=== PATIENT | male | born 1970 | race American Indian/Alaskan Native ===

== ENCOUNTER 2017-04-21 18:44 | Emergency (ER) | payer SELFPAY ==
--- NOTE | 2017-04-21 20:25 | ED PDOC ---
Arrival/HPI - General Chief Complaint: Flu-like Symptoms Time Seen by Provider: 04/21/17 19:16 Historian: Patient - History of Present Illness Narrative History of Present Illness (Text): 04/21/17 20:20 47yo male with no PMHx who present with complaint of nonproductive cough, sore throat, ear pain, bodyache, chills, lightheadedness x 5days. States the bodyache and lightheadedness started today. He denies fever, but was febrile in triage. He did not take any medication for his symptoms. He denies chest pain, SOB, headache, focal weakness, sick contact, travel, nausea, vomiting, any other complaint. Past Medical History - Provider Review Nursing Documentation Reviewed: Yes - Cardiac Hx Cardiac Disorders: No - Pulmonary Hx Respiratory Disorders: No - Neurological Hx Neurological Disorder: No - HEENT Hx HEENT Disorder: No - Renal Hx Renal Disorder: No - Endocrine/Metabolic Hx Endocrine Disorders: No - Hematological/Oncological Hx Blood Disorders: No - Integumentary Hx Dermatological Disorder: No - Musculoskeletal/Rheumatological Hx Musculoskeletal Disorders: No - Gastrointestinal Hx Gastrointestinal Disorders: No - Genitourinary/Gynecological Hx Genitourinary Disorders: No - Psychiatric Hx Psychophysiologic Disorder: No Hx Substance Use: No Family/Social History - Physician Review Nursing Documentation Reviewed: Yes Family/Social History: Unknown Family HX Smoking Status: Never Smoked Hx Alcohol Use: No Hx Substance Use: No Allergies/Home Meds Allergies/Adverse Reactions: Allergies shellfish derived Allergy (Verified 04/21/17 19:03) ANAPHYLAXIS Review of Systems - Physician Review All systems were reviewed & negative as marked: Yes - Review of Systems Constitutional: Fatigue, Fevers Eyes: Normal ENT: Sore Throat, Other (Ear pain) Respiratory: Normal, Cough. absent: SOB, Sputum, Wheezing Cardiovascular: Normal Gastrointestinal: Normal Genitourinary Male: Normal Musculoskeletal: Normal Skin: Normal Neurological: Normal Endocrine: Normal Hemo/Lymphatic: Normal Psychiatric: Normal Physical Exam Vital Signs Reviewed: Yes Vital Signs Temp Pulse Resp BP Pulse Ox 04/21/17 19:08 101.8 F H 102 H 19 130/83 95 04/21/17 19:04 101.8 F H 100 H 18 130/83 94 L Temperature: Febrile Blood Pressure: Normal Pulse: Regular Respiratory Rate: Normal Appearance: Positive for: Well-Appearing, Non-Toxic, Comfortable Pain Distress: None Mental Status: Positive for: Alert and Oriented X 3 - Systems Exam Head: Present: Atraumatic, Normocephalic Pupils: Present: PERRL Extroacular Muscles: Present: EOMI Conjunctiva: Present: Normal Mouth: Present: Moist Mucous Membranes Neck: Present: Normal Range of Motion Respiratory/Chest: Present: Clear to Auscultation, Good Air Exchange. No: Respiratory Distress, Accessory Muscle Use, Wheezes, Decreased Breath Sounds, Rales, Retracting, Rhonchi Cardiovascular: Present: Regular Rate and Rhythm, Normal S1, S2. No: Murmurs Abdomen: Present: Normal Bowel Sounds. No: Tenderness, Distention, Peritoneal Signs Back: Present: Normal Inspection Upper Extremity: Present: Normal Inspection. No: Cyanosis, Edema Lower Extremity: Present: Normal Inspection. No: Edema Neurological: Present: GCS=15, CN II-XII Intact, Speech Normal Skin: Present: Warm, Dry, Normal Color. No: Rashes Psychiatric: Present: Alert, Oriented x 3, Normal Insight, Normal Concentration Medical Decision Making ED Course and Treatment: 04/21/17 20:46 PT in ED for stated history. He was febrile, but no lethargic. His Temp/HR improved in ED with medication. Rapid Flu was negative CXR NAD Result was DW the pt. He have flu like symptoms and will be treated with both Tamiflu and Zpack for URI. He was advised to drink plenty of fluid and rest. Referred to the clinic. TRT ED for any new or worsening symptoms. - Lab Interpretations Lab Results: Lab Results 04/21/17 19:20: Influenza Typ A,B (EIA) Negative for flu a/b - RAD Interpretation Radiology Orders: 04/21/17 19:16 CHEST TWO VIEWS (PA/LAT) [RAD] Stat - Medication Orders Current Medication Orders: Discontinued Medications Ibuprofen (Motrin Tab) 600 mg PO STAT STA Stop: 04/21/17 19:17 Last Admin: 04/21/17 19:29 Dose: 600 mg Disposition/Present on Arrival - Present on Arrival Any Indicators Present on Arrival: No History of DVT/PE: No History of Uncontrolled Diabetes: No Urinary Catheter: No History of Decub. Ulcer: No History Surgical Site Infection Following: None - Disposition Have Diagnosis and Disposition been Completed?: Yes Diagnosis: Viral syndrome, URI (upper respiratory infection) Disposition: HOME/ ROUTINE Disposition Time: 20:50 Patient Plan: Discharge Condition: STABLE Discharge Instructions (ExitCare): Upper Respiratory Infection (ED), Viral Syndrome (ED) Additional Instructions: Drink plenty of fluid and rest Follow up with the clinic Return to ED for any new or worsening symptoms Prescriptions: Azithromycin [Zithromax] 250 mg PO DAILY #4 tab Ibuprofen [Motrin Tab] 600 mg PO Q6 #20 tab Oseltamivir Phosphate [Tamiflu] 75 mg PO BID #10 capsule Promethazine [Phenergan Syrup] 6.25 mg PO Q6 #100 ml Referrals: [facility] [Outside] - Follow up with primary Forms: [employer] (Scottish)
[2017-04-21] MEDS ORDERED: guaiFENesin 200 mg/10 ml Syrup UD PO STA (20:46)
[2017-04-21 22:45] VITALS: BMI 30.4
[2017-04-21 22:46] VITALS: BP 134/70; PULSE 91; RESP 18; TEMP 98.7; O2SAT 98
--- NOTE | 2017-04-22 08:31 | RAD ---
HISTORY: Cough COMPARISON: No prior. TECHNIQUE: Chest PA and lateral FINDINGS: LINES AND TUBES: None. LUNG AND PLEURA: The lungs are well inflated and clear. HEART AND MEDIASTINUM: The heart is not enlarged. The hilar and mediastinal contours are within normal limits. SKELETAL STRUCTURES: The bony structures are within normal limits for the patient's age. VISUALIZED UPPER ABDOMEN: Normal. OTHER FINDINGS: None. IMPRESSION: No active pulmonary disease.
== END 2017-04-21 21:16 | disposition home or self-care (01) ==
LOC: ED 18:44
DX: J06.9 Acute upper respiratory infection, unspecified (principal)

== ENCOUNTER 2017-10-23 10:55 | Emergency (ER) | payer SELFPAY ==
[2017-10-23 10:56] VITALS: BMI 30.4
--- NOTE | 2017-10-23 11:19 | ED PDOC ---
Arrival/HPI - General Time Seen by Provider: 10/23/17 10:56 Historian: Patient - History of Present Illness Narrative History of Present Illness (Text): 10/23/17 11:23 47yo male with no pmhx who present with months history of feeling jittery and having numbness of his foots. Also reports intermittent polyuria/dipsia. States he went to a clinic a month ago and was told his BS was 385, but he have not seen a Doctor and not on medication. He denies chest pain, SOB, focal weakness, nausea, vomiting, visual changes, abdominal pain, any other complaint. Past Medical History - Provider Review Nursing Documentation Reviewed: Yes - Cardiac Hx Cardiac Disorders: No - Pulmonary Hx Respiratory Disorders: No - Neurological Hx Neurological Disorder: No - HEENT Hx HEENT Disorder: No - Renal Hx Renal Disorder: No - Endocrine/Metabolic Hx Endocrine Disorders: No - Hematological/Oncological Hx Blood Disorders: No - Integumentary Hx Dermatological Disorder: No - Musculoskeletal/Rheumatological Hx Musculoskeletal Disorders: No - Gastrointestinal Hx Gastrointestinal Disorders: No - Genitourinary/Gynecological Hx Genitourinary Disorders: No - Psychiatric Hx Psychophysiologic Disorder: No Hx Substance Use: No Family/Social History - Physician Review Nursing Documentation Reviewed: Yes Family/Social History: Unknown Family HX Smoking Status: Never Smoked Hx Alcohol Use: No Hx Substance Use: No Allergies/Home Meds Allergies/Adverse Reactions: Allergies shellfish derived Allergy (Verified 10/23/17 11:13) ANAPHYLAXIS Review of Systems - Physician Review All systems were reviewed & negative as marked: Yes - Review of Systems Constitutional: Normal, Other (Jittery feeling) Eyes: Normal ENT: Normal Respiratory: Normal Cardiovascular: Normal Gastrointestinal: Normal Genitourinary Male: Normal Musculoskeletal: Normal Skin: Normal Neurological: Normal Endocrine: Normal Hemo/Lymphatic: Normal Psychiatric: Normal Physical Exam Vital Signs Reviewed: Yes Vital Signs Temp Pulse Resp BP Pulse Ox 10/23/17 12:37 98.3 F 77 18 129/75 100 10/23/17 11:23 98.1 F 70 18 122/77 99 Temperature: Afebrile Blood Pressure: Normal Pulse: Regular Respiratory Rate: Normal Appearance: Positive for: Well-Appearing, Non-Toxic, Comfortable Pain Distress: None Mental Status: Positive for: Alert and Oriented X 3 - Systems Exam Head: Present: Atraumatic, Normocephalic Pupils: Present: PERRL Extroacular Muscles: Present: EOMI Conjunctiva: Present: Normal Mouth: Present: Moist Mucous Membranes Neck: Present: Normal Range of Motion Respiratory/Chest: Present: Clear to Auscultation, Good Air Exchange. No: Respiratory Distress, Accessory Muscle Use Cardiovascular: Present: Regular Rate and Rhythm, Normal S1, S2. No: Murmurs Abdomen: No: Tenderness, Distention, Peritoneal Signs Back: Present: Normal Inspection Upper Extremity: Present: Normal Inspection. No: Cyanosis, Edema Lower Extremity: Present: Normal Inspection. No: Edema Neurological: Present: GCS=15, CN II-XII Intact, Speech Normal, Motor Func Grossly Intact, Normal Sensory Function, Normal Cerebellar Funct, Norm Deep Tendon Reflexes, Gait Normal, Memory Normal, Normal 2Pt Descrimination, Other ( No focal neurological deficit) Skin: Present: Warm, Dry, Normal Color. No: Rashes Psychiatric: Present: Alert, Oriented x 3, Normal Insight, Normal Concentration Medical Decision Making ED Course and Treatment: 10/23/17 20:04 Pt in ED for stated history was not in any distress and neurologically intact His BS was 252. No AG. He was hydrated and 4units of insulin given. Repeat FS was 217. PT was diagnosed with Diabetes a month ago, but he never followed up for hypoglycemics. He was DC with metformin 500mg. He was strongly advised to monitor his diet, check his FS pre/post morning and night and referred to the clinic. Advised TRT ED for any new or worsening symptoms. - Lab Interpretations Lab Results: 10/23/17 11:23 10/23/17 11:23 Lab Results 10/23/17 11:23: PT 10.4, INR 0.91 L, APTT 30.0 10/23/17 11:23: Sodium 141, Potassium 4.2, Chloride 101, Carbon Dioxide 29, Anion Gap 15, BUN 13, Creatinine 0.9, Est GFR ( Amer) > 60, Est GFR (Non- Af Amer) > 60, Random Glucose 252 H, Calcium 9.5, Total Bilirubin 0.6, AST 30, ALT 37, Alkaline Phosphatase 67, Lactate Dehydrogenase 445, Total Creatine Kinase 336 H, CK-MB (CK-2) 2.3, CK-MB (CK-2) % Cancelled, Troponin I < 0.01, Total Protein 7.4, Albumin 4.3, Globulin 3.1, Albumin/Globulin Ratio 1.4 10/23/17 11:23: WBC 3.3 L, RBC 5.25, Hgb 15.9, Hct 43.8, MCV 83.4, MCH 30.3, MCHC 36.3, RDW 12.3, Plt Count 175, MPV 10.1, Gran % 42.4 L, Lymph % (Auto) 46.6 H, [place] % (Auto) 9.2 H, Eos % (Auto) 1.5, Baso % (Auto) 0.3, Gran # 1.38 L , Lymph # (Auto) 1.5, [place] # (Auto) 0.3, Eos # (Auto) 0.1, Baso # (Auto) 0.01 - Medication Orders Current Medication Orders: Discontinued Medications Sodium Chloride (Sodium Chloride 0.9%) 1,000 mls @ 999 mls/hr IV .Q1H1M STA Stop: 10/23/17 12:22 Last Admin: 10/23/17 11:41 Dose: 999 mls/hr eMAR Start Stop Document 10/23/17 11:41 GMD (Rec: 10/23/17 11:41 GMD [id number]) Intravenous Solution Start Date 10/23/17 Start Time 11:41 End Date 10/23/17 End time 12:42 Total Infusion Time 61 Insulin Human Regular (Humulin R) 4 units IVP ONCE STA Stop: 10/23/17 11:23 Last Admin: 10/23/17 11:55 Dose: 4 unit MAR Blood Glucose Document 10/23/17 11:55 EWO (Rec: 10/23/17 11:56 EW [id number]) Blood Glucose Finger Stick Blood Glucose (70-120) 237 IVP Administration Document 10/23/17 11:55 EWO (Rec: 10/23/17 11:56 [facility] [id number]) Charges for Administration # of IVP Administrations 1 Disposition/Present on Arrival - Present on Arrival Any Indicators Present on Arrival: No History of DVT/PE: No History of Uncontrolled Diabetes: No Urinary Catheter: No History Surgical Site Infection Following: None - Disposition Have Diagnosis and Disposition been Completed?: Yes Diagnosis: Hyperglycemia, New onset type 2 diabetes mellitus Disposition: HOME/ ROUTINE Disposition Time: 12:15 Patient Plan: Discharge Condition: STABLE Discharge Instructions (ExitCare): Type 2 Diabetes, Hyperglycemia, Adult Additional Instructions: Follow up with the clinic Check your sugar morning and night Return to ED for any new or worsening symptoms Prescriptions: metFORMIN [glucOPHAGE] 500 mg PO BID #30 tab Referrals: Lashonda Betts MD [Staff Provider] - Follow up with primary Forms: [employer] (Kenyan)
[2017-10-23] MEDS ORDERED: Sodium Chloride 0.9% 1,000 ML IV STA (11:22)
[2017-10-23] MEDS ORDERED: Insulin Regular 1 UNITS/0.01 ML ML IVP STA (11:22)
[2017-10-23 11:23] VITALS: RESP 18
[2017-10-23 11:40] LABS: BASO # 0.01 K/mm3 (0.0-2.0); BASO % 0.3 % (0.0-3.0); EOS # 0.1 (0.0-0.7); EOS % 1.5 % (1.5-5.0); GRAN # 1.38 (1.4-6.5); GRAN % 42.4 % (50.0-68.0); HEMOGLOBIN 15.9 g/dL (14.0-18.0); LYMPH # 1.5 (1.2-3.4); LYMPH % 46.6 % (22.0-35.0); MEAN CELL VOLUME 83.4 fl (80.0-105.0); MEAN CORPUSCULAR HEMOGLOBIN 30.3 pg (25.0-35.0); MEAN CORPUSCULAR HGB CONC 36.3 g/dl (31.0-37.0); MEAN PLATELET VOLUME 10.1 fl (7.0-11.0); MONO # 0.3 (0.1-0.6); MONO % 9.2 % (1.0-6.0); RBC 5.25 10^6/uL (3.5-6.1); RED CELL DISTRIBUTION WIDTH 12.3 % (11.5-14.5); WHITE BLOOD COUNT 3.3 10^3/ul (4.5-11.0)
[2017-10-23 11:50] LABS: INR 0.91 (0.93-1.08); PROTHROMBIN TIME 10.4 SECONDS (9.4-12.5)
[2017-10-23 11:52] LABS: ALB/GLOB RATIO 1.4 (1.1-1.8); ALBUMIN 4.3 g/dL (3.0-4.8); ALT/SGPT 37 U/L (7-56); AST/SGOT 30 U/L (17-59); BLOOD UREA NITROGEN 13 mg/dL (7-21); CALCIUM 9.5 mg/dL (8.4-10.5); GFR AFRICAN-AMERICAN > 60; GFR NON-AFRICAN AMERICAN > 60
[2017-10-23 12:03] LABS: TROPONIN I < 0.01 ng/mL
[2017-10-23 12:19] LABS: CK-MB 2.3 ng/mL (0.0-3.6)
[2017-10-23 12:38] VITALS: BP 129/75; PULSE 77; TEMP 98.3; O2SAT 100
== END 2017-10-23 12:37 | disposition home or self-care (01) ==
LOC: ED 10:55
DX: E11.65 Type 2 diabetes mellitus with hyperglycemia (principal)
CPT/HCPCS: 80053; 82550; 82553; 82948; 83615; 84484; 85025; 85610; 85730; 96361; 96374; 99282; J7030

== ENCOUNTER 2018-03-19 13:18 | Emergency (ER) | payer SELFPAY ==
[2018-03-19 13:19] VITALS: BMI 30.4
[2018-03-19 13:29] VITALS: PULSE 85
[2018-03-19] MEDS ORDERED: Lidocaine 5% Patch TD ONE (13:46)
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
--- NOTE | 2018-03-19 15:48 | RAD ---
Date of service: 03/19/2018 PROCEDURE: Cervical Spine Radiographs. HISTORY: Pain. COMPARISON: None available. FINDINGS: Straightening of the normal cervical lordosis may be related to muscle spasm or positioning. Alignment maintained. Multilevel degenerative changes including prominent anterior osteophyte formation and intervertebral disc space narrowing. No acute displaced fracture identified. Dens tip appears intact. No prevertebral soft tissue swelling appreciated. OTHER FINDINGS: None. IMPRESSION: Straightening of the normal cervical lordosis may be related to muscle spasm or positioning. Degenerative changes including prominent anterior osteophyte formation and intervertebral disc space narrowing. No acute displaced fracture identified.
[2018-03-19 16:09] VITALS: BP 127/69; RESP 19; TEMP 98; O2SAT 100
== END 2018-03-19 16:07 | disposition home or self-care (01) ==
LOC: ED 13:18
DX: M54.2 Cervicalgia (principal); E11.9 Type 2 diabetes mellitus without complications
CPT/HCPCS: 72050; 96372; 99284; J1885